=== PATIENT | female | born 2000 | race Two or more races ===

== ENCOUNTER 2023-05-05 22:17 | Emergency (ER) | payer OTHER ==
[~2023-05-05] VITALS: Ht 165.1 cm; Wt 59.4 kg
[2023-05-05] MEDS ORDERED: ZOFRAN8 MG PO (22:42)
== END 2023-05-06 06:43 | disposition home or self-care (01) ==
LOC: ER 22:17
DX: O26.899 Other specified pregnancy related conditions, unspecified trimester (principal); R10.9 Unspecified abdominal pain; R11.10 Vomiting, unspecified; Z3A.09 9 weeks gestation of pregnancy

== ENCOUNTER 2023-05-06 13:23 | Inpatient (IN) | payer OTHER ==
[~2023-05-06] VITALS: Ht 165.1 cm; Wt 59.9 kg
[~2023-05-06 13:23] MED LIST: ZOFRAN8 MG PO
[2023-05-09] MEDS ORDERED: PRENATAL + DHA1 EAC1 (09:15)
[2023-05-09] MEDS ORDERED: METOCLOPRAMIDE10 MG PO (18:24)
== END 2023-05-09 18:36 | disposition home or self-care (01) | DRG 833 ==
LOC: OB/GYN 13:23
PROVIDERS: ADMIT Specialist; ATTEND Specialist
PROC: 4A1HXCZ Monitoring of Products of Conception, Cardiac Rate, External Approach (ICD-10-PCS; principal; 2023-05-06)
DX: O21.0 Mild hyperemesis gravidarum (principal); O21.1 Hyperemesis gravidarum with metabolic disturbance; Z3A.10 10 weeks gestation of pregnancy; Z20.822 Contact with and (suspected) exposure to COVID-19

== ENCOUNTER 2023-11-29 02:05 | Inpatient (IN) | payer OTHER ==
[~2023-11-29] VITALS: Ht 165.1 cm; Wt 72.6 kg
[~2023-11-29 02:05] MED LIST changes: +METOCLOPRAMIDE10 MG PO; +PRENATAL + DHA1 EAC1
[2023-11-29 03:23] LABS: URINE APPEARANCE Clear; URINE BILIRRUBIN Negative (NEGATIVE); URINE BLOOD Negative; URINE COLOR Yellow; URINE GLUCOSE Negative (NEGATIVE); URINE LEUKOCYTE Negative; URINE NITRATE Negative; URINE PROTEIN Negative (NEGATIVE); URINE UROBILINOGEN 0.2 E.U./dl
[2023-11-29 03:27] LABS: URINE BACTERIA 36.5 uL (0.0-1933); URINE EPITHELIAL CELLS 3.3 uL (0.0-38.8); URINE WBC 8.7 uL (0.0-23.2)
[2023-11-29 03:39] LABS: INR < 0.93; PARTIAL THROMBOPLASTIN TIME 28.3 SECONDS (22.0-34.0); PROTHROMBIN TIME 9.3 SECONDS (9.0-11.5)
[2023-11-29 03:42] LABS: URINE RBC 0.8 uL (0.0-20.8)
[2023-11-29 03:43] LABS: ALBUMIN 2.9 gm/dL (3.4-5.0); BILIRUBIN TOTAL 0.2 mg/dL (0.3-1.2); CALCIUM 9.4 mg/dL (8.5-10.1); CREATININE SERUM 0.63 mg/dL (0.55-1.02); GFR 118.16; GLOBULINA 3.6 G/DL (2.4-3.5); POTASSIUM 4.81 mEq/L (3.5-5.1); TOTAL PROTEIN 6.5 gm/dL (6.4-8.2)
[2023-11-29 04:08] LABS: HEMATOCRIT 38.3 % (36.0-45.00); HEMOGLOBIN 12.7 g/dL (12.0-15.00); MEAN CELL VOLUME 76.4 fL (80.00-100.00); MEAN CORPUSCULAR HEMOGLOBIN 25.4 pg (27.00-32.0); MEAN CORPUSCULAR HGB CONC 33.2 g/dl (32.0-36.0); PLATELET COUNT 191 K/uL (150-450); RED BLOOD COUNT 5.02 M/uL (4.00-6.00); RED CELL DISTRIBUTION WIDTH 20.4 % (11.5-14.5)
[2023-11-29 22:46] LABS: ABG PH 7.323 (7.35-7.45); ABG PO2 29.8 mmHg (80-100); ABG pCO2 48.5 mmHg (35-45); BASE EXCESS -1.9 mmol/l; BICARBONATE 24.6 mmol/l (23-25); SaO2 50.3 %
[2023-11-29 22:47] LABS: Tco2 26.1 mmol/l; o2 21 %
[2023-11-30 14:36] LABS: HEMATOCRIT 32.6 % (36.0-45.00); HEMOGLOBIN 10.9 g/dL (12.0-15.00); MEAN CELL VOLUME 77.8 fL (80.00-100.00); MEAN CORPUSCULAR HEMOGLOBIN 26.1 pg (27.00-32.0); MEAN CORPUSCULAR HGB CONC 33.5 g/dl (32.0-36.0); PLATELET COUNT 150 K/uL (150-450); RED BLOOD COUNT 4.19 M/uL (4.00-6.00); RED CELL DISTRIBUTION WIDTH 19.8 % (11.5-14.5)
[2023-12-01 14:06] LABS: HEMATOCRIT 32.8 % (36.0-45.00); MEAN CELL VOLUME 77.3 fL (80.00-100.00); MEAN CORPUSCULAR HEMOGLOBIN 25.8 pg (27.00-32.0); MEAN CORPUSCULAR HGB CONC 33.3 g/dl (32.0-36.0); PLATELET COUNT 153 K/uL (150-450); RED BLOOD COUNT 4.25 M/uL (4.00-6.00)
== END 2023-12-02 21:21 | disposition home or self-care (01) | DRG 807 ==
LOC: OBS/DEL 02:05 → LDR 09:09 → OB/GYN 09:09
PROVIDERS: Obstetrics & Gynecology; ADMIT Specialist; ATTEND Specialist
PROC: 4A1HXCZ Monitoring of Products of Conception, Cardiac Rate, External Approach (ICD-10-PCS; 2023-11-29)
PROC: 10E0XZZ Delivery of Products of Conception, External Approach (ICD-10-PCS; principal; 2023-11-30)
PROC: 0UQG7ZZ Repair Vagina, Via Natural or Artificial Opening (ICD-10-PCS; 2023-11-30)
DX: O71.4 Obstetric high vaginal laceration alone (principal); Z37.0 Single live birth; O99.824 Streptococcus B carrier state complicating childbirth; Z3A.39 39 weeks gestation of pregnancy; Z20.822 Contact with and (suspected) exposure to COVID-19